=== PATIENT | male | born 1975 | race Caucasian/White ===

== ENCOUNTER → 2016-05-30 | Outpatient (CLI) | payer BC ==
[~2016-05-30] MED LIST: [UNRECOGNIZED DRUG - OTHER] PO
== END ==
LOC: COL.RAD 09:16
DX: R94.5 Abnormal results of liver function studies (principal)

== ENCOUNTER 2017-07-20 06:58 | Emergency (ER) | payer BC ==
[~2017-07-20] VITALS: Ht 177.8 cm; Wt 85.0 kg
[2017-07-20 07:00] VITALS: TEMP 97.1
[2017-07-20] MEDS ORDERED: KLONOPIN 1MG1 MG PO (07:15)
[2017-07-20] MEDS ORDERED: JANUMET 1000 MG1 TA1 PO (07:15)
[2017-07-20] MEDS ORDERED: LIPITOR 10MG10 MG PO (07:16)
[2017-07-20] MEDS ORDERED: PRISTIQ25 MG PO (07:16)
[2017-07-20] MEDS ORDERED: ANTABUSE 250MG250 MG PO (07:16)
[2017-07-20 07:42] LABS: BASO % 0.3 % (0.0-2.0); EOS # 0.1 (0.0-0.7); EOS % 1.3 % (0-4.0); GRAN % 72.9 % (42.2-75.2); HEMATOCRIT 40.3 % (42.0-52.0); HEMOGLOBIN 14.4 g/dl (13.5-18.0); LYMPH % 18.6 % (20.0-51.0); MEAN CELL VOLUME 91 fl (80.0-100.0); MEAN CORPUSCULAR HEMOGLOBIN 32 pg (27.0-31.0); MEAN CORPUSCULAR HGB CONC 36 g/dl (33.0-37.0); MEAN PLATELET VOLUME 9.4 fl (7.4-10.4); MONO # 0.7 (0.1-0.6); MONO % 6.5 % (1.7-9.3); PLATELET COUNT 249 K/mm3 (130-400); RED BLOOD COUNT 4.44 M/mm3 (4.20-5.60); REDCELL DISTRIBUTION WIDTH-CV 11.7 % (11.5-14.5)
[2017-07-20 07:50] LABS: INR 0.9 (0.8-3.0); PROTHROMBIN TIME 10.5 SECONDS (9.7-12.8)
[2017-07-20 07:53] LABS: ALANINE AMINOTRANSFERASE 72 U/L (21-72); ALBUMIN 3.1 gm/dL (3.5-5.0); ALKALINE PHOSPHATASE 117 U/L (50-136); ANION GAP 11 mmol/L (7-16); AST,SGOT 35 U/L (15-37); BILIRUBIN,TOTAL 0.4 mg/dL (0.0-1.0); BLOOD UREA NITROGEN 11 mg/dL (9-20); CALCIUM 8.4 mg/dL (8.4-10.2); CARBON DIOXIDE 26 mmol/L (22-30); CHLORIDE 104 mmol/L (98-107); CREATININE, serum 0.83 mg/dL (0.66-1.25); GLUCOSE 199 mg/dL (74-106); SODIUM 141 mmol/L (137-145); TOTAL PROTEIN 5.9 gm/dL (6.4-8.2)
[2017-07-20 07:54] LABS: D-DIMER < 200.00 ng/mLDDu (200-230)
[2017-07-20 08:05] LABS: TROPONIN-I < 0.012 ng/mL (0.000-0.034)
[2017-07-20 12:27] VITALS: BP 121/91; PULSE 73
== END 2017-07-20 12:37 | disposition home or self-care (01) ==
LOC: COL.ER 06:58
PROVIDERS: Emergency Medicine
DX: R55 Syncope and collapse (principal); I10 Essential (primary) hypertension; E11.9 Type 2 diabetes mellitus without complications; F17.210 Nicotine dependence, cigarettes, uncomplicated; Z90.89 Acquired absence of other organs; Z79.84 Long term (current) use of oral hypoglycemic drugs
CPT/HCPCS: J7030

== ENCOUNTER → 2017-07-22 | Outpatient (CLI) | payer BC ==
[~2017-07-22] VITALS: Ht 177.8 cm; Wt 88.0 kg
[~2017-07-22] MED LIST changes: +ANTABUSE 250MG250 MG PO; +JANUMET 1000 MG1 TA1 PO; +KLONOPIN 1MG1 MG PO; +LIPITOR 10MG10 MG PO; +PRISTIQ25 MG PO
[2017-07-22 09:08] VITALS: BP 153/99; PULSE 75
[2017-07-22 10:10] VITALS: BP 151/101; PULSE 77
[2017-07-22 10:11] VITALS: BP 147/86; PULSE 92
[2017-07-22 10:12] VITALS: BP 132/71; PULSE 70
[2017-07-22 10:13] VITALS: BP 154/96; PULSE 88
== END ==
LOC: COL.RAD 08:38
DX: R07.9 Chest pain, unspecified (principal); R55 Syncope and collapse
CPT/HCPCS: A9502; J2785

== ENCOUNTER → 2020-08-02 | Outpatient (CLI) | payer BC ==
[~2020-08-02] MED LIST changes: +ASPIRIN E.C. 8181 MG PO; +LIPITOR20 MG PO
== END ==
LOC: COL.RAD 11:22
DX: R19.02 Left upper quadrant abdominal swelling, mass and lump (principal)
CPT/HCPCS: Q9967